=== PATIENT | female | born 2000 | race Caucasian/White ===

== ENCOUNTER 2018-10-02 09:47 | Emergency (ER) | payer BC ==
[~2018-10-02] VITALS: Ht 165.1 cm; Wt 99.8 kg
[~2018-10-02 09:47] MED LIST: IBUP600 PO; MINO50
[2018-10-02 10:37] LABS: Hemoglobin 13.3 g/dL (11.5-16.0)
== END 2018-10-02 11:35 | disposition home or self-care (01) ==
LOC: ER 09:47
PROVIDERS: Emergency Medicine
DX: N93.8 Other specified abnormal uterine and vaginal bleeding (principal); Z79.899 Other long term (current) drug therapy; Z91.018 Allergy to other foods
CPT/HCPCS: 36415; 84703; 85014; 85018; 99284

== ENCOUNTER → 2019-04-12 | Outpatient (CLI) | payer BC ==
[2019-04-12 20:19] LABS: G. vaginalis (DNA Probe) Positive (NEGATIVE); T. vaginalis (DNA Probe) Negative (NEGATIVE)
[2019-04-12 20:20] LABS: Candida species (DNA Probe) Negative (NEGATIVE)
== END ==
LOC: LAB 15:45 → LAB SHORT 15:45
PROVIDERS: Nurse Practitioner Family
DX: N89.8 Other specified noninflammatory disorders of vagina (principal)
CPT/HCPCS: 87480; 87510; 87660

== ENCOUNTER 2020-02-04 21:39 | Emergency (ER) | payer BC ==
[~2020-02-04] VITALS: Ht 165.1 cm; Wt 90.7 kg
[2020-02-04 22:05] LABS: Source, Urine Clean Catch
[2020-02-04 22:09] LABS: Appearance, Urine Clear (Clear); Bilirubin, Urine Neg (Neg); Blood, Urine Neg (Neg); Color, Urine Yellow (P-Yellow); Glucose Qualitative, Urine Neg (Neg); Ketones, Urine Neg (Neg); Leukocyte Esterase, Urine Neg (Neg); Nitrite, Urine Neg (Neg); Protein, Urine Neg (Neg); Specific Gravity, Urine 1.015 (1.003-1.022); Urobilinogen, Urine NORM (Normal)
[2020-02-04 22:39] LABS: BASOPHILS ABSOLUTE AUTO 0.07 K/mm3 (0.00-0.23); BASOPHILS PERCENT AUTO 1 % (0-2); EOSINOPHILS ABSOLUTE AUTO 0.02 K/mm3 (0.00-0.68); EOSINOPHILS PERCENT AUTO 0 % (0-6); Hematocrit 40.9 % (33.0-51.0); Hemoglobin 12.9 g/dL (11.5-16.0); IMMATURE GRAN ABSOLUTE AUTO 0.03 K/mm3 (0.00-0.10); IMMATURE GRAN PERCENT AUTO 0 % (0-1); LYMPHOCYTES PERCENT AUTO 29 % (21-46); MONOCYTES ABSOLUTE AUTO 0.64 K/mm3 (0.16-1.47); MONOCYTES PERCENT AUTO 6 % (4-13); Mean Corpuscular HGB 27.4 pg (26.0-34.0); Mean Corpuscular HGB Conc 31.5 g/dL (31.5-36.5); Mean Corpuscular Volume 87 fL (80-100); Mean Platelet Volume 9.6 fL (9.1-12.4); NEUTROPHILS ABSOLUTE AUTO 6.51 K/mm3 (1.96-9.15); NEUTROPHILS PERCENT AUTO 64 % (41-73); Platelet Count 399 K/mm3 (150-400); RDW Coefficient Variation 12.1 % (11.7-14.2); White Blood Cell Count 10.17 K/mm3 (4.00-11.30)
[2020-02-04 22:56] LABS: Alanine Aminotransfer (ALT/SGP 30 U/L (12-78); Albumin, Blood 3.8 g/dL (3.4-5.0); Albumin/Globulin Ratio 0.9 (0.8-1.8); Alk Phos 92 U/L (50-136); Anion Gap 5 mmol/L (6-16); Aspartate Aminotrans (AST/SGOT 21 U/L (12-37); Bilirubin, Total 0.5 mg/dL (0.1-1.0); Blood Urea Nitrogen 7 mg/dL (8-24); Bun/Creatinine Ratio 8.7 (12.0-20.0); CO2, Blood 25 mmol/L (21-32); Chloride, Blood 107 mmol/L (98-108); Creatinine, Blood 0.81 mg/dL (0.40-1.00); Globulin, Blood 4.3 g/dL (2.2-4.0); Glomerular Filtration Rate >60 (60-); Glucose, Blood 87 mg/dL (70-99); Potassium, Blood 3.5 mmol/L (3.5-5.5); Sodium, Blood 137 mmol/L (136-145); Total Protein, Blood 8.1 g/dL (6.4-8.2)
== END 2020-02-05 00:36 | disposition home or self-care (01) ==
LOC: ER 21:39
PROVIDERS: Student in an Organized Health Care Education/Training Program
DX: R55 Syncope and collapse (principal); R42 Dizziness and giddiness; Z91.018 Allergy to other foods
CPT/HCPCS: 36415; 80053; 81003; 81025; 85025; 93005; 93010; 99284-25

== ENCOUNTER 2021-08-23 13:37 | Emergency (ER) | payer OTHER, BC ==
[~2021-08-23] VITALS: Ht 165.1 cm; Wt 106.6 kg
[2021-08-23] MEDS ORDERED: ALDACTONE25 MG (14:11)
[2021-08-23] MEDS ORDERED: METF500 (14:11)
[2021-08-23] MEDS ORDERED: PROG100 (14:12)
== END 2021-08-23 14:13 | disposition home or self-care (01) ==
LOC: ER 13:37
DX: J06.9 Acute upper respiratory infection, unspecified (principal); Z91.018 Allergy to other foods; Z87.891 Personal history of nicotine dependence
CPT/HCPCS: 99282

== ENCOUNTER 2022-04-09 15:31 | Emergency (ER) | payer OTHER, BC ==
[~2022-04-09] VITALS: Ht 165.1 cm; Wt 99.8 kg
[~2022-04-09 15:31] MED LIST changes: +ALDACTONE25 MG; +METF500; +PROG100
[2022-04-09 17:29] LABS: BASOPHILS ABSOLUTE AUTO 0.06 K/mm3 (0.00-0.23); BASOPHILS PERCENT AUTO 1 % (0-2); EOSINOPHILS ABSOLUTE AUTO 0.14 K/mm3 (0.00-0.68); EOSINOPHILS PERCENT AUTO 2 % (0-6); Hematocrit 41.3 % (33.0-51.0); Hemoglobin 13.4 g/dL (11.5-16.0); IMMATURE GRAN ABSOLUTE AUTO 0.02 K/mm3 (0.00-0.10); IMMATURE GRAN PERCENT AUTO 0 % (0-1); LYMPHOCYTES ABSOLUTE AUTO 3.03 K/mm3 (0.84-5.20); LYMPHOCYTES PERCENT AUTO 33 % (21-46); MONOCYTES ABSOLUTE AUTO 0.39 K/mm3 (0.16-1.47); MONOCYTES PERCENT AUTO 4 % (4-13); Mean Corpuscular HGB 27.4 pg (26.0-34.0); Mean Corpuscular HGB Conc 32.4 g/dL (31.5-36.5); Mean Corpuscular Volume 85 fL (80-100); Mean Platelet Volume 9.8 fL (9.1-12.4); NEUTROPHILS ABSOLUTE AUTO 5.59 K/mm3 (1.96-9.15); NEUTROPHILS PERCENT AUTO 61 % (41-73); Platelet Count 379 K/mm3 (150-400); RDW Coefficient Variation 13.4 % (11.7-14.2); RDW Standard Deviation 41.5 fL (35.1-46.3); Red Blood Cell Count 4.89 M/mm3 (3.80-5.20); White Blood Cell Count 9.23 K/mm3 (4.00-11.30)
[2022-04-09 17:53] LABS: Albumin, Blood 3.8 g/dL (3.4-5.0); Albumin/Globulin Ratio 0.9 (0.8-1.8); Bilirubin, Total 0.6 mg/dL (0.1-1.0); Bun/Creatinine Ratio 13.4 (12.0-20.0); Calcium, Blood 9.9 mg/dL (8.5-10.1); Creatinine, Blood 0.52 mg/dL (0.40-1.00); Globulin, Blood 4.3 g/dL (2.2-4.0); Potassium, Blood 3.8 mmol/L (3.5-5.5); Total Protein, Blood 8.1 g/dL (6.4-8.2)
[2022-04-09 18:50] LABS: Source, Urine Clean Catch
[2022-04-09 18:56] LABS: Appearance, Urine Clear (Clear); Bilirubin, Urine Neg (Neg); Blood, Urine Neg (Neg); Color, Urine Yellow (P-Yellow); Glucose Qualitative, Urine Neg (Neg); Ketones, Urine 1+ (Neg); Leukocyte Esterase, Urine Neg (Neg); Nitrite, Urine Neg (Neg); Protein, Urine Neg (Neg); Specific Gravity, Urine 1.015 (1.003-1.022); Urobilinogen, Urine NORM (Normal)
[2022-04-09] MEDS ORDERED: LEVSOD100 PO (20:49)
[2022-04-09] MEDS ORDERED: FAMO40 PO (20:50)
[2022-04-09] MEDS ORDERED: PRIM250 PO (20:50)
[2022-04-09] MEDS ORDERED: LATA.005SO BOTHEYES (20:50)
[2022-04-09] MEDS ORDERED: LANS30EC PO (20:51)
[2022-04-09] MEDS ORDERED: PRAM.5 PO (20:52)
[2022-04-09] MEDS ORDERED: METFORMIN HCL500 M3 PO (21:33)
[2022-04-09] MEDS ORDERED: PROG100 PO (21:33)
[2022-04-09] MEDS ORDERED: HYDHCL25 PO (21:33)
[2022-04-09] MEDS ORDERED: ZOLOFT50 MG PO (21:33)
[2022-04-09] MEDS ORDERED: NAPR500 PO (22:04)
[2022-04-09] MEDS ORDERED: ONDA4ODT MM (22:04)
== END 2022-04-09 22:38 | disposition home or self-care (01) ==
LOC: ER 15:31
PROVIDERS: Physician Assistant
DX: N83.201 Unspecified ovarian cyst, right side (principal); Z88.5 Allergy status to narcotic agent; Z91.018 Allergy to other foods; Z79.84 Long term (current) use of oral hypoglycemic drugs; Z87.891 Personal history of nicotine dependence
CPT/HCPCS: 76830; 76856; 80053; 81003; 81025; 85025; 96374; 96375; 99284-25; J1885; J3010

== ENCOUNTER 2022-07-12 23:12 | Emergency (ER) | payer OTHER, BC ==
[~2022-07-12] VITALS: Ht 165.1 cm; Wt 97.1 kg
[~2022-07-12 23:12] MED LIST changes: +FAMO40 PO; +HYDHCL25 PO; +LANS30EC PO; +LATA.005SO BOTHEYES; +LEVSOD100 PO; +METFORMIN HCL500 M3 PO; +NAPR500 PO; +ONDA4ODT MM; +PRAM.5 PO; +PRIM250 PO; +PROG100 PO; +ZOLOFT50 MG PO
[2022-07-12] MEDS ORDERED: BUSPIRONE HCL10 M6 PO (23:36)
[2022-07-12] MEDS ORDERED: DULOXETINE HCL60 M1 PO (23:37)
[2022-07-12] MEDS ORDERED: SPIRONOLACTONE50 MG PO (23:37)
[2022-07-12] MEDS ORDERED: SUMA25 PO (23:38)
[2022-07-12] MEDS ORDERED: EC-NAPROXEN375 MG PO (23:39)
[2022-07-13 00:15] LABS: BASOPHILS ABSOLUTE AUTO 0.05 K/mm3 (0.00-0.23); BASOPHILS PERCENT AUTO 0 % (0-2); EOSINOPHILS ABSOLUTE AUTO 0.05 K/mm3 (0.00-0.68); EOSINOPHILS PERCENT AUTO 0 % (0-6); Hematocrit 39.6 % (33.0-51.0); IMMATURE GRAN ABSOLUTE AUTO 0.07 K/mm3 (0.00-0.10); IMMATURE GRAN PERCENT AUTO 1 % (0-1); LYMPHOCYTES ABSOLUTE AUTO 2.05 K/mm3 (0.84-5.20); LYMPHOCYTES PERCENT AUTO 14 % (21-46); MONOCYTES ABSOLUTE AUTO 0.18 K/mm3 (0.16-1.47); MONOCYTES PERCENT AUTO 1 % (4-13); Mean Corpuscular HGB 28.3 pg (26.0-34.0); Mean Corpuscular HGB Conc 32.8 g/dL (31.5-36.5); Mean Corpuscular Volume 86 fL (80-100); NEUTROPHILS ABSOLUTE AUTO 12.71 K/mm3 (1.96-9.15); NEUTROPHILS PERCENT AUTO 84 % (41-73); Platelet Count 385 K/mm3 (150-400); RDW Coefficient Variation 13.5 % (11.7-14.2); RDW Standard Deviation 42.8 fL (35.1-46.3); Red Blood Cell Count 4.59 M/mm3 (3.80-5.20); White Blood Cell Count 15.11 K/mm3 (4.00-11.30)
[2022-07-13 00:33] LABS: Albumin, Blood 4.1 g/dL (3.4-5.0); Albumin/Globulin Ratio 1.1 (0.8-1.8); Bilirubin, Total 0.5 mg/dL (0.1-1.0); Bun/Creatinine Ratio 18.5 (12.0-20.0); Calcium, Blood 9.2 mg/dL (8.5-10.1); Creatinine, Blood 0.76 mg/dL (0.40-1.00); Globulin, Blood 3.7 g/dL (2.2-4.0); Potassium, Blood 3.8 mmol/L (3.5-5.5); Total Protein, Blood 7.8 g/dL (6.4-8.2)
[2022-07-13 00:41] LABS: Source, Urine Clean Catch
[2022-07-13 00:49] LABS: Bilirubin, Urine Neg (Neg); Blood, Urine 1+ (Neg); Glucose Qualitative, Urine Neg (Neg); Ketones, Urine Neg (Neg); Leukocyte Esterase, Urine 1+ (Neg); Nitrite, Urine Neg (Neg); Protein, Urine Neg (Neg); Specific Gravity, Urine 1.005 (1.003-1.022); Urobilinogen, Urine NORM (Normal)
[2022-07-13 00:59] LABS: Appearance, Urine Clear (Clear); Color, Urine Pale Yellow (P-Yellow)
[2022-07-13 01:00] LABS: Bacteria Not Seen /hpf; Red Blood Cells, Urine 0-2 /hpf (0-2); Squamous Epithelial Cells Not Seen /hpf (Few); White Blood Cells, Urine 0-2 /hpf (0-5)
== END 2022-07-13 02:28 | disposition home or self-care (01) ==
LOC: ER 23:12
PROVIDERS: Emergency Medicine
DX: R10.2 Pelvic and perineal pain (principal); Z91.018 Allergy to other foods; Z79.899 Other long term (current) drug therapy
CPT/HCPCS: 36415; 76856; 80053; 81001; 81025; 85025; 96374; 96375; 99284-25; J1885; J2405

== ENCOUNTER 2022-07-29 21:04 | Emergency (ER) | payer OTHER, BC ==
[~2022-07-29] VITALS: Ht 165.1 cm; Wt 97.1 kg
[~2022-07-29 21:04] MED LIST changes: +BUSPIRONE HCL10 M6 PO; +DULOXETINE HCL60 M1 PO; +EC-NAPROXEN375 MG PO; +SPIRONOLACTONE50 MG PO; +SUMA25 PO
[2022-07-29 22:29] LABS: BASOPHILS ABSOLUTE AUTO 0.05 K/mm3 (0.00-0.23); BASOPHILS PERCENT AUTO 0 % (0-2); EOSINOPHILS ABSOLUTE AUTO 0.19 K/mm3 (0.00-0.68); EOSINOPHILS PERCENT AUTO 2 % (0-6); Hemoglobin 12.9 g/dL (11.5-16.0); IMMATURE GRAN ABSOLUTE AUTO 0.03 K/mm3 (0.00-0.10); IMMATURE GRAN PERCENT AUTO 0 % (0-1); LYMPHOCYTES ABSOLUTE AUTO 3.19 K/mm3 (0.84-5.20); LYMPHOCYTES PERCENT AUTO 28 % (21-46); MONOCYTES ABSOLUTE AUTO 0.53 K/mm3 (0.16-1.47); MONOCYTES PERCENT AUTO 5 % (4-13); Mean Corpuscular HGB 27.9 pg (26.0-34.0); Mean Corpuscular HGB Conc 32.3 g/dL (31.5-36.5); Mean Corpuscular Volume 86 fL (80-100); Mean Platelet Volume 9.3 fL (9.1-12.4); NEUTROPHILS ABSOLUTE AUTO 7.26 K/mm3 (1.96-9.15); NEUTROPHILS PERCENT AUTO 65 % (41-73); Platelet Count 408 K/mm3 (150-400); RDW Standard Deviation 41.1 fL (35.1-46.3); Red Blood Cell Count 4.63 M/mm3 (3.80-5.20); White Blood Cell Count 11.25 K/mm3 (4.00-11.30)
[2022-07-29 22:57] LABS: Albumin, Blood 3.9 g/dL (3.4-5.0); Albumin/Globulin Ratio 1.1 (0.8-1.8); Bilirubin, Total 0.3 mg/dL (0.1-1.0); Calcium, Blood 9.1 mg/dL (8.5-10.1); Creatinine, Blood 0.71 mg/dL (0.40-1.00); Globulin, Blood 3.5 g/dL (2.2-4.0); Total Protein, Blood 7.4 g/dL (6.4-8.2)
== END 2022-07-30 01:53 | disposition home or self-care (01) ==
LOC: ER 21:04
PROVIDERS: Emergency Medicine
DX: R55 Syncope and collapse (principal); Z79.899 Other long term (current) drug therapy; Z79.84 Long term (current) use of oral hypoglycemic drugs
CPT/HCPCS: 36415; 80053; 84703; 85025; 93005; 93010

== ENCOUNTER → 2022-12-12 | Outpatient (CLI) | payer OTHER ==
[2022-12-12 16:52] LABS: BASOPHILS ABSOLUTE AUTO 0.08 K/mm3 (0.00-0.23); BASOPHILS PERCENT AUTO 1 % (0-2); EOSINOPHILS ABSOLUTE AUTO 0.12 K/mm3 (0.00-0.68); EOSINOPHILS PERCENT AUTO 2 % (0-6); Hematocrit 41.6 % (33.0-51.0); IMMATURE GRAN ABSOLUTE AUTO 0.02 K/mm3 (0.00-0.10); IMMATURE GRAN PERCENT AUTO 0 % (0-1); LYMPHOCYTES ABSOLUTE AUTO 2.46 K/mm3 (0.84-5.20); LYMPHOCYTES PERCENT AUTO 33 % (21-46); MONOCYTES PERCENT AUTO 5 % (4-13); Mean Corpuscular HGB 28.5 pg (26.0-34.0); Mean Corpuscular HGB Conc 33.7 g/dL (31.5-36.5); Mean Corpuscular Volume 85 fL (80-100); Mean Platelet Volume 10.2 fL (9.1-12.4); NEUTROPHILS PERCENT AUTO 59 % (41-73); Platelet Count 439 K/mm3 (150-400); RDW Coefficient Variation 12.8 % (11.7-14.2); RDW Standard Deviation 39.3 fL (35.1-46.3); Red Blood Cell Count 4.91 M/mm3 (3.80-5.20); White Blood Cell Count 7.48 K/mm3 (4.00-11.30)
[2022-12-12 18:05] LABS: Albumin, Blood 3.6 g/dL (3.4-5.0); Albumin/Globulin Ratio 0.9 (0.8-1.8); Bilirubin, Total 0.2 mg/dL (0.1-1.0); Calcium, Blood 8.7 mg/dL (8.5-10.1); Creatinine, Blood 0.87 mg/dL (0.40-1.00); Globulin, Blood 3.9 g/dL (2.2-4.0); Potassium, Blood 5.7 mmol/L (3.5-5.5); Total Protein, Blood 7.5 g/dL (6.4-8.2)
== END | disposition home or self-care (01) ==
LOC: LAB SHORT 16:45
PROVIDERS: Physician Assistant
DX: R10.9 Unspecified abdominal pain (principal)
CPT/HCPCS: 80053; 83690; 85025

== ENCOUNTER → 2022-12-13 | Outpatient (CLI) | payer OTHER ==
[2022-12-13 13:25] LABS: BASOPHILS ABSOLUTE AUTO 0.06 K/mm3 (0.00-0.23); BASOPHILS PERCENT AUTO 1 % (0-2); EOSINOPHILS ABSOLUTE AUTO 0.18 K/mm3 (0.00-0.68); EOSINOPHILS PERCENT AUTO 2 % (0-6); Hematocrit 40.7 % (33.0-51.0); Hemoglobin 13.5 g/dL (11.5-16.0); IMMATURE GRAN ABSOLUTE AUTO 0.01 K/mm3 (0.00-0.10); IMMATURE GRAN PERCENT AUTO 0 % (0-1); LYMPHOCYTES ABSOLUTE AUTO 3.08 K/mm3 (0.84-5.20); LYMPHOCYTES PERCENT AUTO 38 % (21-46); MONOCYTES ABSOLUTE AUTO 0.44 K/mm3 (0.16-1.47); MONOCYTES PERCENT AUTO 5 % (4-13); Mean Corpuscular HGB 28.4 pg (26.0-34.0); Mean Corpuscular HGB Conc 33.2 g/dL (31.5-36.5); Mean Corpuscular Volume 86 fL (80-100); Mean Platelet Volume 9.7 fL (9.1-12.4); NEUTROPHILS ABSOLUTE AUTO 4.32 K/mm3 (1.96-9.15); NEUTROPHILS PERCENT AUTO 54 % (41-73); Platelet Count 384 K/mm3 (150-400); RDW Coefficient Variation 12.9 % (11.7-14.2); RDW Standard Deviation 40.2 fL (35.1-46.3); Red Blood Cell Count 4.75 M/mm3 (3.80-5.20); White Blood Cell Count 8.09 K/mm3 (4.00-11.30)
[2022-12-13 14:33] LABS: Albumin, Blood 3.7 g/dL (3.4-5.0); Albumin/Globulin Ratio 0.9 (0.8-1.8); Bilirubin, Total 0.3 mg/dL (0.1-1.0); Bun/Creatinine Ratio 11.4 (12.0-20.0); Calcium, Blood 9.1 mg/dL (8.5-10.1); Creatinine, Blood 0.79 mg/dL (0.40-1.00); Potassium, Blood 4.2 mmol/L (3.5-5.5); Total Protein, Blood 7.7 g/dL (6.4-8.2)
== END ==
LOC: LAB SHORT 13:17
PROVIDERS: Physician Assistant
DX: R10.9 Unspecified abdominal pain (principal)
CPT/HCPCS: 80053; 83690; 85025

== ENCOUNTER 2022-12-24 14:54 | Emergency (ER) | payer OTHER ==
[~2022-12-24] VITALS: Ht 165.1 cm; Wt 92.1 kg
[2022-12-24 15:21] LABS: BASOPHILS ABSOLUTE AUTO 0.07 K/mm3 (0.00-0.23); BASOPHILS PERCENT AUTO 1 % (0-2); EOSINOPHILS ABSOLUTE AUTO 0.15 K/mm3 (0.00-0.68); EOSINOPHILS PERCENT AUTO 2 % (0-6); Hemoglobin 13.6 g/dL (11.5-16.0); IMMATURE GRAN ABSOLUTE AUTO 0.02 K/mm3 (0.00-0.10); IMMATURE GRAN PERCENT AUTO 0 % (0-1); LYMPHOCYTES ABSOLUTE AUTO 2.92 K/mm3 (0.84-5.20); LYMPHOCYTES PERCENT AUTO 35 % (21-46); MONOCYTES ABSOLUTE AUTO 0.36 K/mm3 (0.16-1.47); MONOCYTES PERCENT AUTO 4 % (4-13); Mean Corpuscular HGB 28.5 pg (26.0-34.0); Mean Corpuscular HGB Conc 33.2 g/dL (31.5-36.5); Mean Corpuscular Volume 86 fL (80-100); Mean Platelet Volume 9.9 fL (9.1-12.4); NEUTROPHILS ABSOLUTE AUTO 4.77 K/mm3 (1.96-9.15); NEUTROPHILS PERCENT AUTO 58 % (41-73); Platelet Count 391 K/mm3 (150-400); RDW Coefficient Variation 12.2 % (11.7-14.2); RDW Standard Deviation 38.2 fL (35.1-46.3); Red Blood Cell Count 4.78 M/mm3 (3.80-5.20); White Blood Cell Count 8.29 K/mm3 (4.00-11.30)
[2022-12-24 15:41] LABS: Bilirubin, Total 0.4 mg/dL (0.1-1.0); Bun/Creatinine Ratio 12.8 (12.0-20.0); Calcium, Blood 9.2 mg/dL (8.5-10.1); Creatinine, Blood 0.78 mg/dL (0.40-1.00); Globulin, Blood 4.1 g/dL (2.2-4.0); Total Protein, Blood 8.1 g/dL (6.4-8.2)
[2022-12-24] MEDS ORDERED: ONDA4ODT MM (18:11)
[2022-12-24] MEDS ORDERED: Percocet 5-3251 EACH PO (18:11)
[2022-12-24 18:16] VITALS: BP 113/65
== END 2022-12-24 18:17 | disposition home or self-care (01) ==
LOC: ER 14:54
PROVIDERS: Physician Assistant
DX: K85.90 Acute pancreatitis without necrosis or infection, unspecified (principal); Z88.8 Allergy status to other drugs, medicaments and biological substances; Z79.899 Other long term (current) drug therapy; F43.10 Post-traumatic stress disorder, unspecified
CPT/HCPCS: 80053; 81025; 83690; 85025; A9270; J2405; J7030

== ENCOUNTER 2023-01-01 01:22 | Emergency (ER) | payer OTHER ==
[~2023-01-01] VITALS: Ht 160 cm; Wt 81.7 kg
[~2023-01-01 01:22] MED LIST changes: +Percocet 5-3251 EACH PO
[2023-01-01 01:43] VITALS: BP 148/96
[2023-01-01 01:55] LABS: Source, Urine Clean Catch
[2023-01-01 02:00] LABS: Bilirubin, Urine Neg (Neg); Blood, Urine Neg (Neg); Glucose Qualitative, Urine Neg (Neg); Ketones, Urine 1+ (Neg); Leukocyte Esterase, Urine Neg (Neg); Nitrite, Urine Neg (Neg); Protein, Urine Neg (Neg); Urobilinogen, Urine NORM (Normal)
[2023-01-01 02:06] LABS: Appearance, Urine Clear (Clear); Color, Urine Pale Yellow (P-Yellow)
[2023-01-01 02:20] LABS: BASOPHILS ABSOLUTE AUTO 0.06 K/mm3 (0.00-0.23); BASOPHILS PERCENT AUTO 1 % (0-2); EOSINOPHILS ABSOLUTE AUTO 0.11 K/mm3 (0.00-0.68); EOSINOPHILS PERCENT AUTO 2 % (0-6); Hematocrit 37.6 % (33.0-51.0); Hemoglobin 12.5 g/dL (11.5-16.0); IMMATURE GRAN ABSOLUTE AUTO 0.02 K/mm3 (0.00-0.10); IMMATURE GRAN PERCENT AUTO 0 % (0-1); LYMPHOCYTES ABSOLUTE AUTO 3.04 K/mm3 (0.84-5.20); LYMPHOCYTES PERCENT AUTO 41 % (21-46); MONOCYTES ABSOLUTE AUTO 0.39 K/mm3 (0.16-1.47); MONOCYTES PERCENT AUTO 5 % (4-13); Mean Corpuscular HGB 27.8 pg (26.0-34.0); Mean Corpuscular HGB Conc 33.2 g/dL (31.5-36.5); Mean Corpuscular Volume 84 fL (80-100); Mean Platelet Volume 9.8 fL (9.1-12.4); NEUTROPHILS ABSOLUTE AUTO 3.84 K/mm3 (1.96-9.15); NEUTROPHILS PERCENT AUTO 51 % (41-73); Platelet Count 349 K/mm3 (150-400); RDW Coefficient Variation 11.9 % (11.7-14.2); RDW Standard Deviation 36.1 fL (35.1-46.3); Red Blood Cell Count 4.49 M/mm3 (3.80-5.20); White Blood Cell Count 7.46 K/mm3 (4.00-11.30)
[2023-01-01 02:47] LABS: Albumin, Blood 3.8 g/dL (3.4-5.0); Bun/Creatinine Ratio 9.7 (12.0-20.0); Calcium, Blood 8.9 mg/dL (8.5-10.1); Creatinine, Blood 0.73 mg/dL (0.40-1.00); Globulin, Blood 3.8 g/dL (2.2-4.0); Potassium, Blood 3.8 mmol/L (3.5-5.5); Total Protein, Blood 7.6 g/dL (6.4-8.2)
[2023-01-01] MEDS ORDERED: NAPR500 PO (03:28)
[2023-01-01] MEDS ORDERED: PROM12.5S PR (03:28)
== END 2023-01-01 03:46 | disposition home or self-care (01) ==
LOC: ER 01:22
PROVIDERS: Emergency Medicine
DX: R10.13 Epigastric pain (principal); Z88.8 Allergy status to other drugs, medicaments and biological substances; Z91.018 Allergy to other foods; Z79.899 Other long term (current) drug therapy; Z79.84 Long term (current) use of oral hypoglycemic drugs; F43.10 Post-traumatic stress disorder, unspecified
CPT/HCPCS: 80053; 81003; 81025; 83690; 85025; 96374; 96375; 99284-25; J1885; J2270; J2405; J7030

== ENCOUNTER 2024-02-05 21:35 | Emergency (ER) | payer BC, OTHER ==
[~2024-02-05] VITALS: Ht 162.6 cm; Wt 81.7 kg
[~2024-02-05 21:35] MED LIST changes: +Inderal 20 mg T20 MG; +PROM12.5S PR
[2024-02-05 21:45] VITALS: BP 123/80
[2024-02-05] MEDS ORDERED: Ketorolac Tromethamine 30mg Vial IM ONE (22:25)
[2024-02-05] MEDS ORDERED: HYDROmorphone HCl/Pf 1MG SYR IM ONE (22:25)
[2024-02-05] MEDS ORDERED: Ondansetron 4 MG SoluTab SL ONE (22:25)
[2024-02-05] MEDS ORDERED: HYDROCODONE-AC1 EA10 PO (23:11)
[2024-02-05] MEDS ORDERED: IBUP600 PO (23:11)
== END 2024-02-05 23:26 | disposition home or self-care (01) ==
LOC: ER 21:35
DX: M54.16 Radiculopathy, lumbar region (principal); Z91.018 Allergy to other foods; Z88.8 Allergy status to other drugs, medicaments and biological substances; Z79.899 Other long term (current) drug therapy; Z79.84 Long term (current) use of oral hypoglycemic drugs; F43.10 Post-traumatic stress disorder, unspecified
CPT/HCPCS: 96372; 99283-25; A9270; J1170; J1885

== ENCOUNTER → 2024-10-06 | Outpatient (CLI) | payer OTHER ==
[~2024-10-06] MED LIST changes: +HYDROCODONE-AC1 EA10 PO
[2024-10-08 20:23] LABS: C. TRACHOMATIS BY TMA,THINPREP Negative (Negative); N. GONORRHOEAE BY TMA,THINPREP Negative (Negative); SPECIMEN SOURCE Cervical
== END | disposition home or self-care (01) ==
LOC: LAB SHORT 10:56 → LAB 10:56
PROVIDERS: Advanced Practice Midwife
DX: Z01.419 Encounter for gynecological examination (general) (routine) without abnormal findings (principal); Z11.3 Encounter for screening for infections with a predominantly sexual mode of transmission
CPT/HCPCS: 87491; 87591

== ENCOUNTER → 2025-03-23 | Outpatient (CLI) | payer OTHER | LOC: LAB 13:15 → LAB SHORT 13:15 | DX: O09.93 Supervision of high risk pregnancy, unspecified, third trimester (principal) | CPT/HCPCS: 87081; 87150 ==

== ENCOUNTER 2025-04-17 18:38 | Inpatient (IN) | payer OTHER ==
[2025-04-17] VITALS (12 sets, daily range): BP systolic 127–154; BP diastolic 64–106
[~2025-04-17] VITALS: Ht 165.1 cm; Wt 115.0 kg
[2025-04-17] MEDS ORDERED: Acetaminophen650 M1 PO (20:11)
[2025-04-17] MEDS ORDERED: PRENATAL TABLE1 EAC2 PO (20:12)
[2025-04-17] MEDS ORDERED: Methylergonovine Maleate 0.2MG / ML 1ML Amp IM PRN (20:50)
[2025-04-17] MEDS ORDERED: Oxytocin 10 Unit / ML Vial IM PRN (20:50)
[2025-04-17] MEDS ORDERED: Ondansetron HCl 2 MG / ML 2ML Vial IV PRN (20:50)
[2025-04-17] MEDS ORDERED: OXYTOCIN/RINGER'S LACTATE 500 ML IV PRN (20:50)
[2025-04-17] MEDS ORDERED: Carboprost Tromethamine 250 MCG/ML 1ML Amp IM PRN (20:50)
[2025-04-17] MEDS ORDERED: Tranexamic Acid 100 ML IV SCH (20:50)
[2025-04-17 20:59] LABS: BASOPHILS ABSOLUTE AUTO 0.04 K/mm3 (0.00-0.23); BASOPHILS PERCENT AUTO 0 % (0-2); EOSINOPHILS ABSOLUTE AUTO 0.07 K/mm3 (0.00-0.68); EOSINOPHILS PERCENT AUTO 1 % (0-6); Hematocrit 32.3 % (33.0-51.0); Hemoglobin 10.6 g/dL (11.5-16.0); IMMATURE GRAN ABSOLUTE AUTO 0.09 K/mm3 (0.00-0.10); IMMATURE GRAN PERCENT AUTO 1 % (0-1); LYMPHOCYTES ABSOLUTE AUTO 2.07 K/mm3 (0.84-5.20); LYMPHOCYTES PERCENT AUTO 19 % (21-46); MONOCYTES ABSOLUTE AUTO 0.50 K/mm3 (0.16-1.47); MONOCYTES PERCENT AUTO 5 % (4-13); Mean Corpuscular HGB Conc 32.8 g/dL (31.5-36.5); Mean Corpuscular Volume 83 fL (80-100); NEUTROPHILS ABSOLUTE AUTO 8.26 K/mm3 (1.96-9.15); NEUTROPHILS PERCENT AUTO 75 % (41-73); NRBC ABSOLUTE 0.00 K/mm3 (0.00-0.02); NRBC Auto 0.0 /100 WBC (0.0-0.2); Platelet Count 330 K/mm3 (150-400); RDW Coefficient Variation 13.8 % (11.7-14.2); RDW Standard Deviation 41.9 fL (35.1-46.3)
[2025-04-17] MEDS ORDERED: Labetalol HCL 5 MG/ML 4ML Injection (Single Dose) IV PRN (23:15)
[2025-04-17 23:51] LABS: Creatinine, Urine Random 14.90 mg/dL (27.00-270.00)
[2025-04-18] VITALS (31 sets, daily range): BP systolic 109–161; BP diastolic 59–95
[2025-04-18 00:13] LABS: Alanine Aminotransfer (ALT/SGP 10.0 U/L (12-78); Albumin, Blood 2.5 g/dL (3.4-5.0); Albumin/Globulin Ratio 0.6 (0.8-1.8); Anion Gap 13.0 mmol/L (3-11); Aspartate Aminotrans (AST/SGOT 14.0 U/L (12-37); Bilirubin, Total 0.3 mg/dL (0.1-1.0); Blood Urea Nitrogen 8.0 mg/dL (8-24); CO2, Blood 19.0 mmol/L (21-32); Calcium, Blood 8.7 mg/dL (8.5-10.1); Chloride, Blood 107.0 mmol/L (98-108); Creatinine, Blood 0.74 mg/dL (0.40-1.00); Globulin, Blood 4.5 g/dL (2.2-4.0); Glucose, Blood 135.0 mg/dL (70-99); Lactate Dehydrogenase (Ld),Bld 241.0 U/L (100-240); Potassium, Blood 3.6 mmol/L (3.5-5.5); Sodium, Blood 135.0 mmol/L (136-145); Total Protein, Blood 7.0 g/dL (6.4-8.2)
[2025-04-18 00:15] LABS: Fibrinogen 674.0 mg/dL (170-430); Prothrombin Time Results 10.3 Sec (9.7-11.5)
[2025-04-18 00:16] LABS: Protein, Urine Random <5.0 mg/dL (0.0-11.9); Protein/Creat Ratio, Ur Random Unable to Calculate
[2025-04-18] MEDS ORDERED: OXYTOCIN/RINGER'S LACTATE 500 ML IV SCH ×2 (05:00→19:05)
[2025-04-18] MEDS ORDERED: CeFAZolin Sodium 2,000 MG in NS 100 ML IV SCH (15:45)
[2025-04-18] MEDS ORDERED: Metoclopramide HCl 5MG / ML 2ML Vial ONE (15:46)
[2025-04-18] MEDS ORDERED: Metoclopramide HCl 5MG / ML 2ML Vial IV ONE (15:50)
[2025-04-18] MEDS ORDERED: FentaNYL Citrate 50 MCG/ML 2 ML Injection ONE (15:50)
[2025-04-18] MEDS ORDERED: Citric Acid/Sodium Citrate 30 ML BTL PO ONE (15:50)
[2025-04-18] MEDS ORDERED: SuccINYLCHOLINE Chloride 100 MG/5 ML 5MLSYR ONE (16:02)
[2025-04-18] MEDS ORDERED: Ondansetron HCl 2 MG / ML 2ML Vial ONE (16:02)
[2025-04-18] MEDS ORDERED: Ketorolac Tromethamine 30mg Vial ONE (16:02)
[2025-04-18] MEDS ORDERED: Carboprost Tromethamine 250 MCG/ML 1ML Amp ONE (16:03)
[2025-04-18] MEDS ORDERED: Oxytocin 10 Unit / ML Vial ONE (16:05)
[2025-04-18 16:11] LABS: PCO2 Cord - Arterial 73.0 mmHg (40-50); PO2 Cord - Arterial < 14.0 mmHg (16-20); pH Cord - Arterial 7.14 (7.28-7.35)
[2025-04-18 16:13] LABS: PCO2 Cord - Venous 44.0 mmHg (40-50); PO2 Cord - Venous 34.6 mmHg (28-32); pH Umbilical Cord - Venous 7.30 (7.26-7.35)
--- NOTE | 2025-04-18 16:20 | NUR ---
04/18/25 1620 Debo Cuevas TO OR WITH THORPE IN PLACE. SPLASH AND GO PREP DUE TO URGENCY OF PROCEDURE. GENERAL ANESTHESIA DO TO OBSTETRICAL EMERGECY. DELIVERY OF VIABLE MALE INFANT AT 1559. WEIGHT 3740GM. PLACENTA DELIVERED COMPELTE AND MANUALLY. CORD BLOOD SAMPLE SENT WITH BABY'S NURSE. CORD SEGMENT SENT WITH RT FOR GASSES. APGARS 9/9.
[2025-04-18] MEDS ORDERED: HYDROmorphone HCl/Pf 1MG SYR ONE (16:29)
[2025-04-18] MEDS ORDERED: FentaNYL Citrate 50 MCG/ML 2 ML Injection IV PRN (16:45)
[2025-04-18] MEDS ORDERED: Ondansetron HCl 2 MG / ML 2ML Vial IV PRN ×2 (16:45→19:10)
[2025-04-18] MEDS ORDERED: Labetalol HCL 5 MG/ML 4ML Injection (Single Dose) IV PRN (16:45)
[2025-04-18] MEDS ORDERED: Albuterol 2.5 MG/3 ML VIAL INH PRN (16:45)
[2025-04-18] MEDS ORDERED: HYDROmorphone HCl/Pf 1MG SYR IV PRN (16:50)
[2025-04-18] MEDS ORDERED: ePHEDrine Sulfate 50 MG/ML 1ML Injection IV PRN (16:50)
[2025-04-18] MEDS ORDERED: HYDROmorphone 1 MG/ML 30 ML Bag IV PRN (18:00)
[2025-04-18] MEDS ORDERED: Carboprost Tromethamine 250 MCG/ML 1ML Amp IM PRN (19:00)
[2025-04-18] MEDS ORDERED: Ketorolac Tromethamine 30mg Vial IV SCH (19:00)
[2025-04-18] MEDS ORDERED: Magnesium Hydroxide Conc 10 ML UDC PO PRN (19:10)
[2025-04-18] MEDS ORDERED: Rho(D) Immune Globulin 300 MCG / SYR IM ONE (19:10)
--- NOTE | 2025-04-18 19:54 | NUR ---
NEW NET COORDINATOR SETTINGS PROGRAMMED AND VERIFIED WITH KAYLEY Feliz RN. NEW NET COORDINATOR SETTING ARE FOLLOWS, NET COORDINATOR DOSE-0.2MG LOCKOUT-10 MINUTES CONTINOUS DOSE-0.1 1 HOUR LIMIT-1.0MG
[2025-04-18] MEDS ORDERED: Ketorolac Tromethamine 30mg Vial IV PRN (22:05)
[2025-04-19] MEDS ORDERED: CeFAZolin Sodium 2,000 MG in NS 100 ML IV SCH
[2025-04-19 04:15] VITALS: BP 115/64
--- NOTE | 2025-04-19 06:38 | NUR ---
Pt with good pain control overnight, this rn discussed with pt that [employer] would likley be dc'ed this AM and pt then would transition to oral pain medications. pt agreeable to this plan.
[2025-04-19 06:50] LABS: BASOPHILS ABSOLUTE AUTO 0.03 K/mm3 (0.00-0.23); BASOPHILS PERCENT AUTO 0 % (0-2); EOSINOPHILS ABSOLUTE AUTO 0.00 K/mm3 (0.00-0.68); EOSINOPHILS PERCENT AUTO 0 % (0-6); Hematocrit 26.5 % (33.0-51.0); Hemoglobin 8.7 g/dL (11.5-16.0); IMMATURE GRAN ABSOLUTE AUTO 0.11 K/mm3 (0.00-0.10); IMMATURE GRAN PERCENT AUTO 1 % (0-1); LYMPHOCYTES ABSOLUTE AUTO 1.92 K/mm3 (0.84-5.20); LYMPHOCYTES PERCENT AUTO 11 % (21-46); MONOCYTES ABSOLUTE AUTO 0.67 K/mm3 (0.16-1.47); MONOCYTES PERCENT AUTO 4 % (4-13); Mean Corpuscular HGB Conc 32.8 g/dL (31.5-36.5); Mean Corpuscular Volume 83 fL (80-100); NEUTROPHILS ABSOLUTE AUTO 14.05 K/mm3 (1.96-9.15); NEUTROPHILS PERCENT AUTO 84 % (41-73); NRBC ABSOLUTE 0.00 K/mm3 (0.00-0.02); NRBC Auto 0.0 /100 WBC (0.0-0.2); Platelet Count 332 K/mm3 (150-400); RDW Coefficient Variation 13.8 % (11.7-14.2); RDW Standard Deviation 41.4 fL (35.1-46.3)
[2025-04-19 07:20] VITALS: BP 113/60
[2025-04-19] MEDS ORDERED: Prenatal Vit/FE Fumarate/FA 1 Tab PO SCH (09:00)
[2025-04-19] MEDS ORDERED: Polyethylene Glycol 3350 17 gm PO SCH (09:00)
--- NOTE | 2025-04-19 13:19 | NUR ---
STAVE LOG CUT OFF SAW OPERATOR TURNED OFF AT 1245. ORIGINAL PLAN WAS TO TURN IT OFF AROUND 1030 THIS AM BUT PT WAS REPORTING PAIN WAS STILL 03/02. SO OPTED TO WAIT UNTIL AFTER FEED AND AFTER RECEIVING TORADOL. RN OFFERED TO GET PT UP AND SHOWERED AT THIS TIME AND PT CHOSE TO TAKE A SHORT NAP PRIOR TO GETTTING UP. PT THORPE STILL IN PLACE. WILL ATTEMPT TO GET PT UP AND SHOWERED AROUND 1415.
[2025-04-19 16:45] VITALS: BP 130/76
[2025-04-19 20:14] VITALS: BP 104/62
--- NOTE | 2025-04-20 00:39 | NUR ---
patient needed blankets for baby. Blankets were provided no further assistance at this time.
[2025-04-20 01:23] VITALS: BP 121/71
[2025-04-20 04:23] VITALS: BP 112/69
[2025-04-20 07:13] VITALS: BP 137/73
--- NOTE | 2025-04-20 10:09 | NUR ---
VISIT FROM [employer]FT INSTRUMENT REPAIRER FOR [facility] 10. PT REPORTS FEELING "VERY BLESSED" AND WELL ESTABLISHED WITH [facility] AND OTHER SERVICES, WELL COUNSELING THROUGH [facility] (SHE ALREADY HAS AN APPT SCHEDULED WITH THEM). AIRCRAFT INSTRUMENT REPAIRER REPORTS THAT PATIENT IS SAFE TO GO HOME. AWARE OF SCORE. PT CALLING [facility] TO SET UP APPT WITH [facility] [place] FOR WITHIN 2 WEEKS.
[2025-04-20 12:34] VITALS: BP 131/60
== END 2025-04-20 14:05 | disposition home or self-care (01) | DRG 788 ==
LOC: OBS 18:38 → BC 18:41 → OBS 18:55 → BC 18:56
PROVIDERS: Family Medicine; Obstetrics & Gynecology; ADMIT Advanced Practice Midwife
PROC: 0U7C7ZZ Dilation of Cervix, Via Natural or Artificial Opening (ICD-10-PCS; 2025-04-17)
PROC: 10D00Z1 Extraction of Products of Conception, Low, Open Approach (ICD-10-PCS; principal; 2025-04-18 14:15)
DX: O48.0 Post-term pregnancy (principal); Z3A.40 40 weeks gestation of pregnancy; Z37.0 Single live birth; Z87.19 Personal history of other diseases of the digestive system; Z87.891 Personal history of nicotine dependence; Z91.018 Allergy to other foods; O99.214 Obesity complicating childbirth; O99.344 Other mental disorders complicating childbirth; F43.12 Post-traumatic stress disorder, chronic; O13.4 Gestational [pregnancy-induced] hypertension without significant proteinuria, complicating childbirth; O69.0XX0 Labor and delivery complicated by prolapse of cord, not applicable or unspecified
CPT/HCPCS: 36415; 59200; 80053; 82570; 82803; 83615; 84156; 85025; 85384; 85610; 85730; 86850; 86900; 86901; 86923; A9270; J0330; J0456; J0690; J1171; J1720; J1885; J2405; J2590; J2704; J3010; J7050; J7120